=== PATIENT | female | born 1965 | race Caucasian/White ===

== ENCOUNTER 2018-03-25 16:30 | Emergency (ER) | payer BC ==
[~2018-03-25] VITALS: Ht 167.6 cm; Wt 70.5 kg
[2018-03-25] MEDS ORDERED: MOTRIN800 MG PO (18:34)
[2018-03-25 18:47] VITALS: BP 133/79
== END 2018-03-25 18:48 | disposition home or self-care (01) ==
LOC: EME 16:30
DX: S90.31XA Contusion of right foot, initial encounter (principal); S93.601A Unspecified sprain of right foot, initial encounter; W18.40XA Slipping, tripping and stumbling without falling, unspecified, initial encounter; Y93.02 Activity, running
CPT/HCPCS: 73630; 99281; 99283